=== PATIENT | male | born 1980 | race Caucasian/White ===

== ENCOUNTER 2017-01-15 17:25 | Emergency (ER) | payer OTHER ==
[~2017-01-15 17:25] MED LIST: Lidocaine 1% 20 ML MDV INFILT ONE
--- NOTE | 2017-01-15 17:43 | EDM.PDOC ---
ED HPI Trauma - General Chief Complaint: Upper Extremity Injury/Pain Stated Complaint: L HAND INJURY Time Seen by Provider: 01/15/17 17:25 Source: Reports: Patient History Limitations: Reports: No limitations - History of Present Illness INITIAL COMMENTS - FREE TEXT/NARRATIVE: 36 yo male incurred a crush injury to his L index finger at work prior to arrival. His tetanus is UTD. Pain is manageable he states. Symptom Onset Date: 01/15/17 Symptom Onset Time: 17:00 Occurred When: just prior to arrival Occurred Where: work Method of Injury: other (crush) Severity: moderate Pain/Injury Location: Reports: upper extremity, left Consciousness: Reports: no loss of consciousness Associated Symptoms: Reports: denies other symptoms Review of Systems - Review of Systems Review Of Systems: See Below Constitutional: Reports: no symptoms Musculoskeletal: Reports: hand pain (crush injury L index finger) Skin: Reports: other (laceration to lorenzo side of L index finger) Neurological: Reports: No Symptoms Trauma Exam - Physical Exam Exam: See Below Exam Limited By: No limitations General Appearance: Reports: alert, WD/WN, no apparent distress Head: Reports: atraumatic, normocephalic Extremities: Reports: other (bleeding controlled from L index finger laceration. No deformity. Cap refill intact. ) Neurologic: Reports: no motor/sensory deficits, alert, normal mood/affect, oriented x 3 Skin: Reports: Normal color, Warm/dry, Other (wound to lorenzo aspect of the L index finger L shaped and about 2.5 cm long) Course - Vital Signs Text/Narrative:: Finger X-ray-neg Anesth wound with 5 ml of 1% lidocaine locally, irrigated wound with a 30 ml syringe several times. Closure of wound with simple sutures of 5-0 Ethilon. Tube gauze applied. - Orders/Labs/Meds Orders: Active Orders 24 hr Category Date Time Status Fingers Second Digit Lt F1 [CR] Stat Exams 01/15/17 17:37 Taken Departure - Departure Time of Disposition: 18:20 Disposition: Home, Self-Care 01 Condition: good Clinical Impression: Finger laceration Qualifiers: Encounter type: initial encounter Qualified Code(s): S61.219A - Laceration without foreign body of unspecified finger without damage to nail, initial encounter Forms: ED Department Discharge - My Orders Last 24 Hours: My Active Orders 01/15/17 17:37 Fingers Second Digit Lt F1 [CR] Stat - Assessment/Plan Last 24 Hours: My Active Orders 01/15/17 17:37 Fingers Second Digit Lt F1 [CR] Stat
[2017-01-15 18:58] VITALS: BP 124/65
--- NOTE | 2017-01-16 14:56 | CR ---
INDICATION: Crush injury - laceration distal to first metacarpophalangeal joint. LEFT SECOND DIGIT FINGER: Three views of the left index finger revealed no evidence of a fracture, dislocation, or other significant bone or joint abnormality. A small linear metallic density is noted apparently in the soft tissues adjacent to the distal metaphysis of the 2nd metacarpal - lateral to the distal metaphysis. MTDD
== END 2017-01-15 18:51 | disposition home or self-care (01) ==
LOC: FB.ED 17:25
DX: S61.211A Laceration without foreign body of left index finger without damage to nail, initial encounter (principal); X58.XXXA Exposure to other specified factors, initial encounter; Y99.0 Civilian activity done for income or pay
CPT/HCPCS: 12001; 73140; 99000; 99283; A4217